=== PATIENT | male | born 1970 | race Caucasian/White ===

== ENCOUNTER 2018-09-11 07:56 | Day surgery (SDC) | payer BC ==
[2018-09-07 10:39] VITALS: BMI 26.6
[~2018-09-11 07:56] MED LIST: LACTATED RINGERS 1,000 ML IV SCH
[2018-09-11 08:18] VITALS: RESP 16; TEMP 97.6
[2018-09-11] MEDS ORDERED: LIDOCAINE 1% 20 ML VIAL (10MG/ML) FOR IV START INTRADERMA ONE (08:25)
[2018-09-11] MEDS ORDERED: PROPOFOL 10 MG/ML 20 ML VIAL IV ONE (08:48)
--- NOTE | 2018-09-11 09:13 | P.PCN ---
Date of Procedure: 09/11/18 Procedure(s) Performed: Procedure: Total colonoscopy. Preoperative diagnosis: Screening for neoplasia. Postoperative diagnosis: Exam within normal limits. Preparation: HalfLytely prep. Sedation: Was provided by anesthesia. Brief clinical history: The patient is a 48-year-old male who is scheduled for t his evaluation for screening for neoplasia age being his risk factor. There is no family history of colon cancer. The patient has no abdominal complaints, bleeding or anemia. Procedure: With the patient on his left lateral decubitus position and after informed consent and adequate sedation, the perianal area was inspected and it did not show any fissures or fistulas. There were no masses felt on digital rectal examination. The Olympus CFH 190L video colonoscope was then inserted in the rectum in the usual fashion and advanced to the cecum. The preparation was good. The mucosa appeared healthy. No polyps or tumors were seen or any obvious diverticular disease or other pathology. I retroflexed the endoscope in the rectum before the endoscope was withdrawn. The patient tolerated the procedure well. Plan: The patient was reassured. He will follow up with you as planned and I recommended repeat exam in 10 years.
[2018-09-11 09:28] VITALS: BP 125/87; PULSE 71
== END 2018-09-11 09:44 | disposition home or self-care (01) ==
LOC: ORWHC2ENDO 07:56
DX: Z12.11 Encounter for screening for malignant neoplasm of colon (principal); M19.90 Unspecified osteoarthritis, unspecified site; J45.909 Unspecified asthma, uncomplicated; Z79.899 Other long term (current) drug therapy
CPT/HCPCS: J2704; G0121

== ENCOUNTER 2019-02-22 15:23 | Observation (INO) | payer BC ==
[2019-02-22 16:37] LABS: Basophils # (A) 0.1 k/uL (0-0.2); Basophils % (A) 1 %; Eosinophils # (A) 0.3 k/uL (0-0.7); Eosinophils % (A) 4 %; HCT 45.3 % (39.0-53.0); HGB 15.9 gm/dL (13.0-17.5); Lymphocytes # (A) 2.5 k/uL (1.0-4.8); Lymphocytes % (A) 32 %; MCH 29.7 pg (25.0-35.0); MCV 84.8 fL (80.0-100.0); Mean Platelet Volume 6.3; Monocytes # (A) 0.5 k/uL (0-1.0); Monocytes % (A) 6 %; Neutrophils # (A) 4.1 k/uL (1.3-7.7); Neutrophils % (A) 54 %; Platelet Count 307 k/uL (150-450); RBC 5.34 m/uL (4.30-5.90); RDW 12.9 % (11.5-15.5); WBC 7.6 k/uL (3.8-10.6)
[2019-02-22 16:45] LABS: ALT 29 U/L (21-72); AST 25 U/L (17-59); African American GFR (CKD) >90 (>60 ml/min/1.73 sqM); Albumin 4.6 g/dL (3.5-5.0); Alkaline Phosphatase 41 U/L (38-126); Anion Gap 10 mmol/L; Blood Urea Nitrogen 17 mg/dL (9-20); Carbon Dioxide 25 mmol/L (22-30); Chloride 107 mmol/L (98-107); Glucose 110 mg/dL (74-99); Potassium 4.2 mmol/L (3.5-5.1); Sodium 142 mmol/L (137-145); Total Bilirubin 0.3 mg/dL (0.2-1.3); Total Protein 7.6 g/dL (6.3-8.2)
[2019-02-22 16:47] LABS: Prothrombin Time 10.8 sec (9.0-12.0)
--- NOTE | 2019-02-22 17:01 | CT ---
EXAMINATION TYPE: CT brain wo con DATE OF EXAM: 02/22/2019 COMPARISON: None HISTORY: RIGHT LEG NUMBNESS CT DLP: 1133 mGycm Automated exposure control for dose reduction was used. FINDINGS: Ventricles and sulci appear normal. There is no mass effect nor midline shift. There is no sign of in tracranial hemorrhage. Calvarium is intact. IMPRESSION: NEGATIVE CT SCAN OF THE BRAIN.
--- NOTE | 2019-02-22 17:02 | XR ---
EXAMINATION TYPE: XR chest 1V portable DATE OF EXAM: 02/22/2019 COMPARISON: NONE HISTORY: Syncope TECHNIQUE: Single frontal view of the chest is obtained. FINDINGS: Heart and mediastinum are normal. Lungs are clear. Diaphragm is normal. There is right fou rth rib deformity consistent with old thoracotomy. There is no pleural effusion. Bony thorax is intac t. IMPRESSION: No cardiopulmonary disease. Normal heart.
--- NOTE | 2019-02-22 17:14 | CT ---
EXAMINATION TYPE: CT angio head neck DATE OF EXAM: 02/22/2019 HISTORY: Right leg numbness COMPARISON: CT DLP: 424.8 mGycm. Automated Exposure Control for Dose Reduction was Utilized. TECHNIQUE: CTA scan of the neck is performed with IV Contrast, patient injected with 65 mL of Isovue 370, axial images are obtained, coronal and sagittal reformatted images are reviewed. Three-D recons tructed images are created on an independent workstation and reviewed. FINDINGS: There is arterial flow in the subclavian arteries bilaterally. There is normal branching pattern of t he great vessels on the aortic arch. There is bilateral arterial flow in the common internal and exte rnal carotid arteries. There is arterial flow in both vertebral arteries. There is arterial flow in t he vertebrobasilar artery system. There is wide patency of the carotid artery bifurcations. There is no evidence of carotid or vertebral artery aneurysm or dissection. There is normal contrast opacification of the venous sinuses. There is arterial flow in the anterior middle and posterior cerebral arteries. There is no evidence of hemodynamic stenosis. There is no mas s effect. There is no evidence of intracranial aneurysm or neovascularity. IMPRESSION: Negative CT angiogram of the neck. Negative CT angiogram of the brain.
[2019-02-22] MEDS ORDERED: MAG HYDROX/AL HYDROX/SIMETH 30 ML CUP PO PRN (18:48)
[2019-02-22] MEDS ORDERED: ONDANSETRON 4 MG/2 ML VIAL IVP PRN (18:48)
[2019-02-22] MEDS ORDERED: NALOXONE 0.4 MG/ML 1 ML VIAL IV PRN (18:48)
[2019-02-22] MEDS ORDERED: TEMAZEPAM 15 MG CAP PO PRN (18:48)
--- NOTE | 2019-02-22 18:48 | ED ---
Dizziness HPI - General Chief Complaint: Dizziness Stated Complaint: Light headed, R L numbness Time Seen by Provider: 02/22/19 15:44 Source: patient Mode of arrival: ambulatory Limitations: no limitations - History of Present Illness Initial Comments: Patient presents with dizziness and syncopal episode. He has no chest pain or shortness of breath. He has no nausea or vomiting or diaphoresis. He has no focal weakness this time. He has no paresthesias. He is ambulatory. He denies sick contacts. He denies injuries. He has no neck pain or stiffness. He currently has no change in vision or hearing. Nothing made his symptoms better or worse on their own. His symptoms have resolved. - Related Data Home Medications Medication Instructions Recorded Confirmed Acetaminophen Tab [Tylenol Tab] 500 mg PO Q6H 09/07/18 02/22/19 Albuterol Sulfate [Proair 1 puff INHALATION RT-TID PRN 09/07/18 02/22/19 Respiclick] Allergies Allergy/AdvReac Type Severity Reaction Status Date / Time No Known Allergies Allergy Verified 02/22/19 16:16 Review of Systems ROS Statement: Those systems with pertinent positive or pertinent negative responses have been documented in the HPI. ROS Other: All systems not noted in ROS Statement are negative. Past Medical History Past Medical History: Asthma, Osteoarthritis (OA) Additional Past Medical History / Comment(s): gout, History of Any Multi-Drug Resistant Organisms: None Reported Past Surgical History: No Surgical Hx Reported Past Anesthesia/Blood Transfusion Reactions: No Reported Reaction Past Psychological History: No Psychological Hx Reported Smoking Status: Former smoker - Past Family History Father Family Medical History: Cancer General Exam Limitations: no limitations General appearance: alert, in no apparent distress Head exam: Present: atraumatic, normocephalic, normal inspection Eye exam: Present: normal appearance, PERRL, EOMI. Absent: scleral icterus, conjunctival injection, periorbital swelling ENT exam: Present: normal exam, mucous membranes moist Neck exam: Present: normal inspection. Absent: tenderness, meningismus, lymp hadenopathy Respiratory exam: Present: normal lung sounds bilaterally. Absent: respiratory distress, wheezes, rales, rhonchi, stridor Cardiovascular Exam: Present: regular rate, normal rhythm, normal heart sounds. Absent: systolic murmur, diastolic murmur, rubs, gallop, clicks GI/Abdominal exam: Present: soft, normal bowel sounds. Absent: distended, tenderness, guarding, rebound, rigid Extremities exam: Present: normal inspection, full ROM, normal capillary refill. Absent: tenderness, pedal edema, joint swelling, calf tenderness Back exam: Present: normal inspection Neurological exam: Present: alert, oriented X3, CN II-XII intact Psychiatric exam: Present: normal affect, normal mood Skin exam: Present: warm, dry, intact, normal color. Absent: rash Course Vital Signs 02/22/19 15:28 Temperature 97.8 F Pulse Rate 78 Respiratory 18 Rate Blood Pressure 150/86 O2 Sat by Pulse 99 Oximetry EKG Findings - EKG Comments: EKG Findings:: Twelve-lead EKG shows ventricular rate 72 bpm, normal [place] interval and QRS complex is, no ST elevation or depression, interpreted by me as normal sinus rhythm. Medical Decision Making - Medical Decision Making Patient presents with syncope. His examination does not show evidence of TIA or stroke at this time. I did obtain a CT of the head, CTA head and neck which are all normal. His laboratory studies are unremarkable. I do not know the exact etiology of sick a be. Patient will be admitted to the hospital. - Lab Data Result diagrams: 02/22/19 16:26 02/22/19 16:26 Lab Results 02/22/19 02/22/19 02/22/19 Range/Units 16:26 16:26 16:26 WBC 7.6 (3.8-10.6) k/uL RBC 5.34 (4.30-5.90) m/uL Hgb 15.9 (13.0-17.5) gm/dL Hct 45.3 (39.0-53.0) % MCV 84.8 (80.0-100.0) fL MCH 29.7 (25.0-35.0) pg MCHC 35.0 (31.0-37.0) g/dL RDW 12.9 (11.5-15.5) % Plt Count 307 (150-450) k/uL Neutrophils % 54 % Lymphocytes % 32 % Monocytes % 6 % Eosinophils % 4 % Basophils % 1 % Neutrophils # 4.1 (1.3-7.7) k/uL Lymphocytes # 2.5 (1.0-4.8) k/uL Monocytes # 0.5 (0-1.0) k/uL Eosinophils # 0.3 (0-0.7) k/uL Basophils # 0.1 (0-0.2) k/uL PT 10.8 (9.0-12.0) sec INR 1.0 (<1.2) Sodium 142 (137-145) mmol/L Potassium 4.2 (3.5-5.1) mmol/L Chloride 107 (98-107) mmol/L Carbon Dioxide 25 (22-30) mmol/L Anion Gap 10 mmol/L BUN 17 (9-20) mg/dL Creatinine 0.85 (0.66-1.25) mg/dL Est GFR (CKD-EPI)AfAm >90 (>60 ml/min/1.73 sqM) Est GFR (CKD-EPI)NonAf >90 (>60 ml/min/1.73 sqM) Glucose 110 H (74-99) mg/dL Calcium 10.0 (8.4-10.2) mg/dL Total Bilirubin 0.3 (0.2-1.3) mg/dL AST 25 (17-59) U/L ALT 29 (21-72) U/L Alkaline Phosphatase 41 (38-126) U/L Troponin I (0.000-0.034) ng/mL Total Protein 7.6 (6.3-8.2) g/dL Albumin 4.6 (3.5-5.0) g/dL 02/22/19 Range/Units 16:26 WBC (3.8-10.6) k/uL RBC (4.30-5.90) m/uL Hgb (13.0-17.5) gm/dL Hct (39.0-53.0) % MCV (80.0-100.0) fL MCH (25.0-35.0) pg MCHC (31.0-37.0) g/dL RDW (11.5-15.5) % Plt Count (150-450) k/uL Neutrophils % % Lymphocytes % % Monocytes % % Eosinophils % % Basophils % % Neutrophils # (1.3-7.7) k/uL Lymphocytes # (1.0-4.8) k/uL Monocytes # (0-1.0) k/uL Eosinophils # (0-0.7) k/uL Basophils # (0-0.2) k/uL PT (9.0-12.0) sec INR (<1.2) Sodium (137-145) mmol/L Potassium (3.5-5.1) mmol/L Chloride (98-107) mmol/L Carbon Dioxide (22-30) mmol/L Anion Gap mmol/L BUN (9-20) mg/dL Creatinine (0.66-1.25) mg/dL Est GFR (CKD-EPI)AfAm (>60 ml/min/1.73 sqM) Est GFR (CKD-EPI)NonAf (>60 ml/min/1.73 sqM) Glucose (74-99) mg/dL Calcium (8.4-10.2) mg/dL Total Bilirubin (0.2-1.3) mg/dL AST (17-59) U/L ALT (21-72) U/L Alkaline Phosphatase (38-126) U/L Troponin I <0.012 (0.000-0.034) ng/mL Total Protein (6.3-8.2) g/dL Albumin (3.5-5.0) g/dL Disposition Clinical Impression: Syncope Disposition: ADMITTED IP TO THIS HOSP Condition: Fair Is patient prescribed a controlled substance at d/c from ED?: No Referrals: Viktor Black MD [Primary Care Provider] - 1-2 days
[2019-02-22] MEDS ORDERED: ALBUTEROL NEBULIZED 2.5 MG/3 ML INHALATION PRN (18:49)
[2019-02-22 19:46] VITALS: BMI 26.6
[2019-02-22] MEDS ORDERED: ACETAMINOPHEN TAB 325 MG TAB PO PRN (20:46)
[2019-02-22] MEDS ORDERED: NAPROXEN 250 MG TAB PO PRN (20:46)
--- NOTE | 2019-02-23 15:29 | MR ---
EXAMINATION TYPE: MR brain wo/w con DATE OF EXAM: 02/23/2019 COMPARISON: CT brain 02/22/2019 HISTORY: Episode of lightheadedness, rt leg went numb CONTRAST: Performed utilizing 7.5 mL intravenous Gadavist gadolinium contrast. TECHNIQUE: Multiplanar, multiecho imaging on a 3.0 Gloria magnet is performed through the brain. Stud y is performed within 24 hours of arrival to the hospital. The craniovertebral junction is normal. The pituitary is normal. Optic chiasm is visualized is norm al Diffusion-weighted imaging is performed. No abnormal hyperintensity is present to suggest an acute i ntracranial infarct or acute ischemic change. Signal through the brain is normal Ventricles and sulci are appropriate for the patient age. Mucosal thickenings within the bilateral maxillary sinuses and diffusely through the ethmoid air cell s. Mastoid air cells are clear. IMPRESSIONS: 1. Normal MRI brain. No suspicious changes to suggest acute or recent subacute ischemic change.
[2019-02-23] MEDS ORDERED: ENOXAPARIN 40 MG/0.4 ML SYRINGE SQ SCH (16:15)
--- NOTE | 2019-02-23 16:15 | P.HPIM ---
History of Present Illness H&P Date: 02/23/19 Chief Complaint: Right leg weakness History of presenting complaint: This is a very pleasant [address] Black. Patient in fairly good health. Works in the local [employer]. Around 7:30 in the morning yesterday patient was on the floor. Patient had his breakfast. [place] lightheaded. And suddenly felt the right leg was becoming numb and before new AST went down. Patient never passed out. There was no jerking activity noted that biting or incontinence. No chest pain or palpitation. Patient is on the floor for a few minutes then came around. And got up and started feeling okay. After about 3 or 4 hours again had a tightening sensation in the right thigh numbness and tingling in the right leg and decided to come to the ER. Subsequently those symptoms completely resolved. Computed tomography scan of the brain was unremarkable. Angiogram of brain was negative. Patient denied any back pain. Denies any lack of sleep or any history of head injury. No history of seizures. There was no post-episode confusion. I did inform the ER physician that was no neurology coverage available. This was conveyed to the patient. Patient nearly feeling back to himself at baseline. No prior episodes as such. Review of systems: GEN.: None EYES: None HEENT: None NECK: None RESPIRATORY: None CARDIOVASCULAR: None GASTROINTESTINAL: None GENITOURINARY: None MUSCULOSKELETAL: None LYMPHATICS: None HEMATOLOGICAL: None PSYCHIATRY: None NEUROLOGICAL: As above Past medical history to include: Asthma, gout Family medical history: Cancer Physical examination: VITAL SIGNS: 97.8, 78, 18, 150/86, 99% room air GENERAL: Average built, sitting up, comfortable. EYES: Pupils equal. Conjunctiva normal. HEENT: External appearance of nose and ears normal, oral cavity grossly normal. NECK: JVD not raised; masses not palpable. HEART: First and second heart sounds are normal; no edema. LUNGS: Respiratory rate normal; clear to auscultation. ABDOMEN: Soft, nontender, liver spleen not palpable, no masses palpable. PSYCH: Alert and oriented x3; mood and affect normal. NEUROLOGICAL: Cranial nerves grossly intact; no facial asymmetry, power and sensation grossly intact. No deficits in the lower extremity.. LYMPHATICS: No lymph nodes palpable in the axilla and neck Investigations: White count 7.6 hemoglobin 15.9 potassium 4.2 bun 17 creatinine 0.85 Troponin 3 negative. Computed tomography scan of the brain, CT angiogram to brain negative EKG tracing personally reviewed by me-normal sinus rhythm Chest x-ray film personally reviewed by me-lung rosales clear Assessment: -This is a patient presents with lightheadedness and right leg numbness and weakness to the point that he went down. Never loss consciousness. There were no cardiac symptoms. No epilepsy symptoms. Were no premonitory symptoms or post ictal symptoms. Patient has denied any back pain or injury. We'll do an MRI of the brain with and without contrast and MRA to look for any focal findings the brain. -Intermittent asthma -Gout Plan: Will empirically put the patient on aspirin. Await the above results. We'll also get a computed tomography scan of the lumbar spine without contrast. Otherwise patient doing well. Care was discussed with the patient. Questions were answered. Past Medical History Past Medical History: Asthma, Osteoarthritis (OA) Additional Past Medical History / Comment(s): gout, History of Any Multi-Drug Resistant Organisms: None Reported Past Surgical History: No Surgical Hx Reported Past Anesthesia/Blood Transfusion Reactions: No Reported Reaction Past Psychological History: No Psychological Hx Reported Smoking Status: Former smoker Past Alcohol Use History: Occasional Additional Past Alcohol Use History / Comment(s): quit smoking 5 yrs ago, smoked on and off for 20 yrs, < 1ppd Past Drug Use History: None Reported - Past Family History Father Family Medical History: Cancer Medications and Allergies Home Medications Medication Instructions Recorded Confirmed Type Acetaminophen Tab [Tylenol Tab] 500 mg PO Q6H 09/07/18 02/22/19 History Albuterol Sulfate [Proair 1 puff INHALATION RT-TID PRN 09/07/18 02/22/19 History Respiclick] Allergies Allergy/AdvReac Type Severity Reaction Status Date / Time cat dander Allergy Intermediate Wheezing Verified 02/22/19 22:37 dog dander Allergy Intermediate Wheezing Verified 02/22/19 22:37 silk Allergy Mild Rash/Hives Verified 02/22/19 22:37 Physical Exam Vitals: Vital Signs Temp Pulse Pulse Resp BP BP Pulse Ox 02/23/19 12:00 98.4 F 62 18 124/79 97 02/23/19 08:00 97.9 F 65 16 139/88 95 02/23/19 04:00 62 18 02/23/19 03:35 97.8 F 66 18 136/88 02/23/19 00:10 62 18 02/22/19 23:13 97.9 F 67 18 134/90 97 02/22/19 21:40 156/94 02/22/19 20:48 98.1 F 71 18 149/105 02/22/19 20:00 71 17 169/100 02/22/19 18:54 98.5 F 66 18 150/101 98 Intake and Output 02/23/19 02/23/19 02/23/19 06:59 14:59 22:59 Other: Voiding Method Toilet Results CBC & Chem 7: 02/22/19 16:26 02/22/19 16:26 Labs: Abnormal Lab Results - Last 24 Hours (Table) 02/22/19 Range/Units 16:26 Glucose 110 H (74-99) mg/dL Thrombosis Risk Factor Assmnt - Choose All That Apply Any of the Below Risk Factors Present?: No
[2019-02-23 19:15] VITALS: BP 162/80; PULSE 68; RESP 18; TEMP 98.5
--- NOTE | 2019-02-23 19:39 | MR ---
EXAMINATION TYPE: MR angio head wo/neck wo/w con DATE OF EXAM: 02/23/2019 COMPARISON: CTA head 02/22/2019 HISTORY: Episode of lightheadedness, rt leg went numb CONTRAST: None TECHNIQUE: Multiplanar multiecho imaging on a 3.0 Gloria magnet is performed through the [place]. 3-D [id number] imaging is performed. Source images are reviewed on the computer in the axi al plane. Reconstructed images rotating on the computer are reviewed. FINDINGS: The internal carotid arteries bifurcate normally into A1 and M1 segments. Right A1 segment is hypoplastic. The A2 segments are normal. Middle cerebral artery branches are normal. Anterior communicating artery is patent. The right posterior communicating artery is absent. The left posterior communicating artery is absent. Vertebrobasilar arteries within the [id number]-am-sciz are normal. Posterior cerebral vasculature is norm al. No suspicious aneurysm or aneurysmal dilatation is evident. No obstructions are identified. No significant flow-limiting stenosis is evident. IMPRESSIONS: 1. NORMAL MRA [place] OF [place].
--- NOTE | 2019-02-23 20:47 | CT ---
EXAMINATION TYPE: CT lumbar spine wo con DATE OF EXAM: 02/23/2019 COMPARISON: None HISTORY: Right leg weakness. No back pain or known injury. CT DLP: 860.1 mGycm CONTRAST: none TECHNIQUE: CT of the lumbar spine is performed on a spiral scan at 3 mm thick sections. Reconstructed images are performed in the coronal and sagittal planes. FINDINGS: There is a 2.7 cm cyst measuring 8 Hounsfield units posterior right mid kidney. A lipoma is likely within the superior left psoas muscle this measures -106 8 Hounsfield units. T12-L1: No focal disc herniation or significant disc bulge is evident. No spinal canal stenosis or neural foraminal stenosis is present. L1-L2: No focal disc herniation or significant disc bulge is evident. No spinal canal stenosis or n eural foraminal stenosis is present L2-L3: No focal disc herniation or significant disc bulge is evident. No spinal canal stenosis or n eural foraminal stenosis is present L3-L4: No focal disc herniation or significant disc bulge is evident. No spinal canal stenosis or n eural foraminal stenosis is present L4-L5: No focal disc herniation or significant disc bulge is evident. No spinal canal stenosis or n eural foraminal stenosis is present L5-S1: No focal disc herniation or significant disc bulge is evident. No spinal canal stenosis or n eural foraminal stenosis is present Vertebral alignment appears normal. IMPRESSION: 1. No suspicious acute changes to account for right leg weakness through the lumbar spine.
--- NOTE | 2019-02-23 22:14 | P.DS ---
Providers Date of admission: 02/22/19 18:48 Expected date of discharge: 02/23/19 Attending physician: Vinh Ambrocio Primary care physician: David Black [facility] Course: Chief Complaint: Right leg weakness Interval history: This is a very pleasant [address] Black. Patient in fairly good health. Works in the local [employer]. Around 7:30 in the morning yesterday patient was on the floor. Patient had his breakfast. [place] lightheaded. And suddenly felt the right leg was becoming numb and before new AST went down. Patient never passed out. There was no jerking activity noted that biting or incontinence. No chest pain or palpitation. Patient is on the floor for a few minutes then came around. And got up and started feeling okay. After about 3 or 4 hours again had a tightening sensation in the right thigh numbness and tingling in the right leg and decided to come to the ER. Subsequently those symptoms completely resolved. Computed tomography scan of the brain was unremarkable. Angiogram of brain was negative. Patient denied any back pain. Denies any lack of sleep or any history of head injury. No history of seizures. There was no post-episode confusion. I did inform the ER physician that was no neurology coverage available. This was conveyed to the patient. Patient nearly feeling back to himself at baseline. No prior episodes as such. MRI of the brain was done. MRA of the brain was done and negative. Computed tomography scan of lumbar spine was negative. Patient is back to his baseline. Discussed with the patient. Plan the patient follow-up with neurology as an outpatient. Physical examination: VITAL SIGNS: 98.5, 60, 16, 131, 90, 96% room air GENERAL: Average built, sitting up, comfortable. EYES: Pupils equal. Conjunctiva normal. HEENT: External appearance of nose and ears normal, oral cavity grossly normal. NECK: JVD not raised; masses not palpable. HEART: First and second heart sounds are normal; no edema. LUNGS: Respiratory rate normal; clear to auscultation. ABDOMEN: Soft, nontender, liver spleen not palpable, no masses palpable. PSYCH: Alert and oriented x3; mood and affect normal. NEUROLOGICAL: Cranial nerves grossly intact; no facial asymmetry, power and sensation grossly intact. No deficits in the lower extremity.. Investigations: White count 7.6 hemoglobin 15.9 potassium 4.2 bun 17 creatinine 0.85 Troponin 3 negative. Computed tomography scan of the brain, CT angiogram to brain negative EKG tracing personally reviewed by me-normal sinus rhythm Chest x-ray film personally reviewed by me-lung rosales clear MRI of the brain, MRA of the brain, computed tomography scan of the lumbar spine all negative Assessment: -Right leg weakness possibly from temporary neuropathy with some calf weakness, resolved. -Intermittent asthma -Gout Disposition: Home Patient Condition at Discharge: Stable Plan - Discharge Summary New Discharge Prescriptions: New Aspirin 81 mg PO DAILY #30 chewable Continue Acetaminophen Tab [Tylenol] 500 mg PO Q6H Albuterol Sulfate [Proair Respiclick] 1 puff INHALATION RT-TID PRN PRN Reason: asthma Discharge Medication List Acetaminophen Tab [Tylenol] 500 mg PO Q6H 09/07/18 [History] Albuterol Sulfate [Proair Respiclick] 1 puff INHALATION RT-TID PRN 09/07/18 [History] Aspirin 81 mg PO DAILY #30 chewable 02/23/19 [Rx] Follow up Appointment(s)/Referral(s): Viktor Black MD [Primary Care Provider] - 3 Days Shaka Aguilar MD [STAFF PHYSICIAN] - 1 Week Patient Instructions/Handouts: Syncope (DC)
== END 2019-02-23 22:15 | disposition home or self-care (01) ==
LOC: EC 15:23 → 1SOBS 18:48
PROVIDERS: ADMIT Hospitalist; ATTEND Hospitalist
DX: R53.1 Weakness (principal); J45.20 Mild intermittent asthma, uncomplicated; R20.0 Anesthesia of skin; R42 Dizziness and giddiness; R20.2 Paresthesia of skin; R55 Syncope and collapse; M19.90 Unspecified osteoarthritis, unspecified site; M10.9 Gout, unspecified; Z79.899 Other long term (current) drug therapy; Z91.048 Other nonmedicinal substance allergy status; Z87.891 Personal history of nicotine dependence; Z80.9 Family history of malignant neoplasm, unspecified
CPT/HCPCS: 96372; 99285; 36415; 93005; 80053; 84484 ×2; 85025; 85610; 71045; 72131; 70496; 70450; 70498; 70544; 70549; 70553; G0378 ×2; J1650; A9585; Q9967

== ENCOUNTER → 2023-11-02 | Outpatient (CLI) | payer BC ==
[2023-11-02 14:44] VITALS: BP 142/91; PULSE 76; RESP 16; TEMP 98.2
--- NOTE | 2023-11-02 15:12 | P.SLEEP ---
History of Present Illness DATE: 11/02/2023 CONSULTATION/NEW PATIENT EVALUATION HISTORY OF PRESENT ILLNESS/SLEEP-WAKE EVALUATION: 53-year-old gentleman had be en evaluated in the sleep center for possible obstructive sleep apnea hypopnea syndrome. SLEEP SCHEDULE: Usually sleep schedule from 11 PM to 6 AM on weekdays and to 67 AM on weekend. FALLING ASLEEP: Sometimes patient may have difficulties with falling asleep, has TV set in bedroom. DURING SLEEP: Patient usually sleeps on the stomach position with snoring and possibly episodes of grinding teeth. Patient wakes up from sleep once with nocturia. No history of hypnogogical hallucinations, sleep paralysis, or cataplexy. DURING THE DAY/WAKE STATE: In the morning patient wake up tired, falling asleep during the day.. [place] sleepiness scale is increased to 14. Patient may take 1 nap during the day at different times. PAST MEDICAL HISTORY: Asthma, acid reflux, tinnitus. PAST SURGICAL HISTORY: None. MEDICATIONS: Please see below. SOCIAL HISTORY: Please see below. FAMILY HISTORY: Please see below. REVIEW OF SYSTEMS: Sleepiness during the day. No fevers. No double vision. No recent chest pain. No shortness of breath. No abdominal pain. No bleeding episodes. No blood in urine. No seizure episodes. PHYSICAL EXAMINATION: GENERAL: A pleasant patient without any distress. VITAL SIGNS: Please see below, weight 186 pounds, BMI 28.7. HEENT: PERRLA, EOMI. Evaluation of oropharynx showed tongue protrudes midline, low position of soft palate Mallampati 4. NECK: Supple. No JVD. Thyroid is not palpable. 16 inches in circumference. LUNGS: Clear to percussion and to auscultation. Good air exchange. No wheezing or rhonchi. HEART: S1, S2 regular. No murmurs, gallops or rubs. ABDOMEN: Soft and nontender. Bowel sounds are present. No organomegaly appreciated. EXTREMITIES: No clubbing or cyanosis. PULMONOLOGY TECHNICIAN: Awake, alert, and oriented x3. Cranial nerves 2 to 7 intact. There is no fasciculation or atrophy noted. No focal deficits observed. ASSESSMENT: 1. Snoring, awakenings from sleep with nocturia, extremely low position of soft palate Mallampati 4, sleepiness during the day. Obstructive sleep apnea hypopnea syndrome. 2. Significant excessive daytime sleepiness with [place] Sleepiness Scale 14 dictate necessity to include hypersomnia and narcolepsy and differential diagnosis. 3. Asthma. 4. Acid reflux. 5 tinnitus. 6 . History of grinding teeth. PLAN: 1. Home sleep apnea test for evaluation of patient's breathing during sleep. 2. Following plan after reading sleep study. 3. Preferable position during sleep on the side. 4. No driving if patient feels any sleepiness. Patient is aware of civil and criminal liability for unsafe driving. 5. Sleep hygiene with regular sleep time for at least 7.5-8 hours. 6. Watching weight. Thank you very much for referring this patient for consultation. Sincerely, Alexandre Vargas MD, PhD, FAASM. Diplomat of [employer], Sleep Medicine Board by [employer] Animator of [facility] [place] Past Medical History Past Medical History: Asthma, Osteoarthritis (OA) Additional Past Medical History / Comment(s): gout, History of Any Multi-Drug Resistant Organisms: None Reported Past Surgical History: No Surgical Hx Reported Additional Past Surgical History / Comment(s): cyst from back 2013? Past Anesthesia/Blood Transfusion Reactions: No Reported Reaction Past Psychological History: No Psychological Hx Reported Smoking Status: Former smoker Past Alcohol Use History: Occasional Additional Past Alcohol Use History / Comment(s): quit smoking 5 yrs ago, smoked on and off for 20 yrs, < 1ppd Past Drug Use History: None Reported - Past Family History Father Family Medical History: Cancer Medications and Allergies Home Medications Medication Instructions Recorded Confirmed Type Acetaminophen Tab [Tylenol] 500 mg PO Q6H 09/07/18 02/22/19 History Albuterol Sulfate [Proair 1 puff INHALATION RT-TID PRN 09/07/18 11/02/23 History Respiclick] Omeprazole 20 mg PO DIRECTED PRN 11/02/23 11/02/23 History Allergies Allergy/AdvReac Type Severity Reaction Status Date / Time cat dander Allergy Intermediate Wheezing Verified 02/22/19 22:37 dog dander Allergy Intermediate Wheezing Verified 02/22/19 22:37 silk Allergy Mild Rash/Hives Verified 02/22/19 22:37 Physical Exam Vitals: Vital Signs Temp Pulse Resp BP Pulse Ox 11/02/23 14:43 98.2 F 76 16 142/91 97 Intake and Output 11/02/23 11/02/23 11/02/23 06:59 14:59 22:59 Other: Weight 84.368 kg Sleep Note - Sleep Data ESS Total: 14 - Sleep Note Sleep Note: Temperature: 98.2 F Pulse Rate: 76 Respiratory Rate: 16 Blood Pressure: 142/91 SpO2: 97 Height: 5 ft 7.5 in Weight: 84.368 kg BMI: Neck Circumference: 16
== END ==
LOC: 3 N SLEEP 14:34
PROVIDERS: ATTEND Internal Medicine
DX: G47.33 Obstructive sleep apnea (adult) (pediatric) (principal); G47.10 Hypersomnia, unspecified; J45.909 Unspecified asthma, uncomplicated; K21.9 Gastro-esophageal reflux disease without esophagitis; H93.19 Tinnitus, unspecified ear; Z98.818 Other dental procedure status; Z91.09 Other allergy status, other than to drugs and biological substances; Z88.8 Allergy status to other drugs, medicaments and biological substances; Z79.899 Other long term (current) drug therapy; Z87.891 Personal history of nicotine dependence
CPT/HCPCS: 99202

== ENCOUNTER → 2023-11-13 | Outpatient (CLI) | payer BC ==
--- NOTE | 2023-11-15 16:01 | P.PCN ---
Description of Procedure: CLINICAL: A home sleep apnea test has been done for confirmation of possible obstructive sleep apnea-hypopnea syndrome. DESCRIPTION OF PROCEDURE: RESULTS: Recording time was 8 hours 26 minutes. Evaluation time was 8 hours 13 minutes. Evaluation time is sufficient for making conclusion about results of the test. Raw data of sleep recording has been reviewed and is adequate. Respiratory channel showed 6 apneas and 38 hypopneas. Apnea-hypopnea index was 5.3 per hour. Pulse rate in the range between minimum 53, maximum 97, average 62 by computer calculation. Lowest desaturation was 85%. IMPRESSION: 1. Obstructive Sleep Apnea Hypopnea Syndrome in mild range. Patient presents with symptoms of significant excessive daytime sleepiness with [place] Sleepiness Scale 14. Please see other impressions from consultation. PLAN: 1. The patient will be started on auto-PAP treatmentfor correction of respiratory abnormallities during sleep. 2. I will see patient for follow up visit to discuss results of the test, evaluate clinical response on treatment with PAP therapy and make any necessary adjustments related to mask fitting, pressure, and humidification. 3. Watching weight. 4. Sleep hygiene with regular time in bed for at least 8 hours. 5. No driving if feeling any sleepiness. 6. If patient will continue sleepiness while on treatment with CPAP we may consider multiple sleep latency test. Thank you very much for allowing me to participate in the management of your patient. Sincerely, Alexandre Vargas MD, PhD, FAASM Diplomat of [place] [employer] Sleep Medicine Board of [place] [employer] Employment Appeals Examiner of [facility] [place]
== END ==
LOC: 3 N SLEEP 10:55
PROVIDERS: ATTEND Internal Medicine
DX: G47.33 Obstructive sleep apnea (adult) (pediatric) (principal); Z91.09 Other allergy status, other than to drugs and biological substances; Z88.8 Allergy status to other drugs, medicaments and biological substances; Z87.891 Personal history of nicotine dependence